=== PATIENT | female | born 1955 | race Caucasian/White ===

== ENCOUNTER → 2016-11-18 | Outpatient (CLI) | payer BC ==
--- NOTE | 2016-11-18 17:10 | MA ---
Screening Digital Mammogram with iCAD Analysis Clinical Indications: 61-year-old female whose sister had breast cancer at an unspecified age. The p atient has had a prior benign right lumpectomy, and has a history of breast cysts. She is currently t aking hormone replacement therapy, and presents for routine annual mammographic screening. Technique: Standard cephalocaudal projections are obtained. Digital breast tomosynthesis was performe d in the MLO projection with reconstruction at 1.0 mm slice thickness, and composite MLO views were r econstructed. This examination is processed by the iCAD computer aided detection system. Comparison Studies: Mammography, dated September 17, 2015, August 01, 2014, July 01, 2013, March, March 09, 2012, January 28, 2011, and August 02, 2010, left breast sonography dated July 31, 2013, and bilateral breast sonography dated March 21, 2012. Breast Density: Type C (Heterogeneously dense). Findings: CAD was reviewed, and is negative. There are no new masses, suspicious microcalcifications, or secondary signs of malignancy identified. There has been no significant change in the appearance of either breast. Rounded masses, left greater than right, corresponding to previously diagnosed cyst s are not convincingly different than on previous studies. Impression: Benign mammography. BI-RADS Category 2. Recommendation: Routine mammographic screening in one year as long as physical examination is negativ e in this patient with heterogeneously dense breast parenchyma. [facility] will send a result letter to the patient. Negative mammography should not preclude additional workup of a clinically suspicious finding. The patient's information is entered into a reminder system with a target due date for her next mammo gram.
== END ==
LOC: FIMAGING 10:46
DX: Z12.31 Encounter for screening mammogram for malignant neoplasm of breast (principal); Z80.3 Family history of malignant neoplasm of breast; Z79.890 Hormone replacement therapy
CPT/HCPCS: G0202

== ENCOUNTER → 2017-01-04 | Outpatient (CLI) | payer BC | LOC: FIMAGING 13:15 | PROVIDERS: ATTEND Obstetrics & Gynecology | DX: Z13.820 Encounter for screening for osteoporosis (principal); M81.0 Age-related osteoporosis without current pathological fracture ==

== ENCOUNTER → 2018-01-19 | Outpatient (CLI) | payer BC | LOC: FIMAGING 13:32 | PROVIDERS: ATTEND Obstetrics & Gynecology | DX: Z12.31 Encounter for screening mammogram for malignant neoplasm of breast (principal) ==

== ENCOUNTER → 2019-01-13 | Outpatient (CLI) | payer BC | LOC: EDSTATUS 15:59 → GIMAGING 17:19 | PROVIDERS: ATTEND Family Medicine | DX: M51.36 Other intervertebral disc degeneration, lumbar region (principal); M41.86 Other forms of scoliosis, lumbar region; M53.86 Other specified dorsopathies, lumbar region | CPT/HCPCS: 72100-PO ==

== ENCOUNTER → 2019-02-10 | Outpatient (CLI) | payer BC | LOC: FIMAGING 12:33 | PROVIDERS: ATTEND Obstetrics & Gynecology | DX: Z12.31 Encounter for screening mammogram for malignant neoplasm of breast (principal); Z80.3 Family history of malignant neoplasm of breast ==

== ENCOUNTER → 2019-02-27 | Outpatient (CLI) | payer BC | LOC: FIMAGING 13:34 ==